=== PATIENT | female | born 1965 | race Caucasian/White ===

== ENCOUNTER 2017-03-19 21:20 | Inpatient (IN) | payer OTHER ==
[~2017-03-19] VITALS: Ht 160 cm; Wt 143.7 kg
[~2017-03-19 21:20] MED LIST: VENTOLIN HFA18 GM IH; WELLBUTRIN XL300 MG PO; ZOLOFT100 MG PO
[2017-03-20 07:32] LABS: POINT-OF-CARE METER ID UU14174212
[2017-03-20 07:46] VITALS: BP 132/66
[2017-03-20 12:25] VITALS: BP 128/62
[2017-03-20 13:02] LABS: POINT-OF-CARE METER ID UU14208750
[2017-03-20 15:30] VITALS: BP 127/59
[2017-03-20 17:44] LABS: POINT-OF-CARE METER ID UU14208750
[2017-03-20 19:23] VITALS: BP 135/62
[2017-03-20 23:31] LABS: POINT-OF-CARE METER ID UU14162508
[2017-03-20 23:59] VITALS: BP 147/77
[2017-03-21 03:51] VITALS: BP 139/68
[2017-03-21 05:31] LABS: POINT-OF-CARE METER ID UU14162508
[2017-03-21 06:56] VITALS: BP 179/84
[2017-03-21 07:47] LABS: HEMATOCRIT 30.4 % (36.0-46.0); MCH 20.1 PG (29.0-34.0); MCHC 29.6 G/DL (30.0-36.0); MCV 67.9 FL (83-99); PLATELET COUNT 170 K/uL (156-360); RBC DIS.WIDTH-CV 18.2 % (11.8-14.6); RBC DIS.WIDTH-SD 40.9 % (39-53); RED BLOOD COUNT 4.48 M/uL (3.80-5.20); WHITE BLOOD COUNT 7.2 K/uL (4.1-10.2)
[2017-03-21 08:07] LABS: ANION GAP 7 MEQ/L (2-14); CHLORIDE 104 MEQ/L (99-109); GFR ESTIMATE (CALCULATED) > 59 mL/min/; GLUCOSE 74 mg/dL (70-99); MAGNESIUM 2.2 mg/dl (1.3-2.7); POTASSIUM 4.1 MEQ/L (3.7-5.4); SAMPLE HEMOLYSIS CHECK 0; SAMPLE ICTERIC CHECK 0; SAMPLE LIPEMIA CHECK 0; SODIUM 141 MEQ/L (136-147); UREA NITROGEN (BUN) 12 mg/dL (9-23)
[2017-03-21] MEDS ORDERED: HYDROCODON-ACE1 EAC7 PO (10:16)
== END 2017-03-21 12:09 | disposition home or self-care (01) | DRG 621 ==
LOC: ENRESERV 21:20 → 2EASTP 03-20 06:50 → 2SOUTH 03-20 06:50 → ENRESERV 03-20 10:54 → 2SOUTH 03-20 12:10 → 2EASTP 03-20 12:19 → 2SOUTH 03-20 12:32 → 2EASTP 03-21 12:09
PROVIDERS: Surgery
PROC: 0DB64Z3 Excision of Stomach, Percutaneous Endoscopic Approach, Vertical (ICD-10-PCS; principal; 2017-03-20)
DX: E66.01 Morbid (severe) obesity due to excess calories (principal); J45.909 Unspecified asthma, uncomplicated; Z68.43 Body mass index [BMI] 50.0-59.9, adult; I27.2 Other secondary pulmonary hypertension; F32.9 Major depressive disorder, single episode, unspecified; K21.9 Gastro-esophageal reflux disease without esophagitis; G47.33 Obstructive sleep apnea (adult) (pediatric)
CPT/HCPCS: 80048; 82948; 83735; 84100; 85027; C9113; J0131; J0330; J0690; J1100; J1170; J1644; J1650; J1815; J1885; J2250; J2405; J2550; J2710; J2765; J3010; J3480; J7120; S0020